=== PATIENT | male | born 1975 | race Caucasian/White ===

== ENCOUNTER → 2024-06-22 | Outpatient (CLI) | payer OTHER ==
--- NOTE | 2024-06-25 15:04 | PE ---
EXAMINATION TYPE: PET CT fusion skull to thigh DATE OF EXAM: 06/22/2024 COMPARISON: Chest CT 05/11/2024, CT abdomen 03/31/2024 Prior PET/CT: No prior PET/CT of dislocation CLINICAL INDICATION: Male, 49 years old with history of R91.8 OTHER NONSPECIFIC ABNORMAL, solitary pu lmonary nodule TECHNIQUE: Following the intravenous administration of 10.1 mCi of F-18 FDG, whole body images are p erformed from the skull base to the midthigh. Images are reviewed on the computer in the coronal, ax ial, and sagittal planes. Reconstructed rotating images are created on independent workstation and r eviewed on the computer. A localization and attenuation correction CT is performed in conjunction w ith the PET scan. DLP: 1304.20 mGycm SCAN: Initial Blood glucose: 92 mg/dL Average Mediastinum SUV: 2.43 Average Liver SUV: 2.83 FINDINGS: NECK: There is some focal uptake within the posterior nasal passage may be uptake within a small. Im age 13, SUV 6.04. There is uptake within the soft tissues of the hypopharynx, example image 27, SUV 5 .72 on the right and SUV 4.42 on the left. There is some intense uptake posterior to the apex of the jaw. Direct visualization recommended. Imag e 26, SUV 6.4 THORAX: No abnormal uptake. No suspicious uptake is within the soft tissue nodule right lateral lung base, image 101, SUV 0.96. N o suspicious uptake within smaller nearby nodules posterior lateral right lung. ABDOMEN: No abnormal uptake PELVIS: No abnormal uptake OSSEOUS STRUCTURES: No abnormal uptake LOCALIZATION CT: Lung nodules are identified on CT. No additional suspicious findings. COMPARISON: No significant changes IMPRESSION: 1. No suspicious uptake within the right lung nodules to suggest primary or metastatic neoplasm. 2. There is some focal uptake posterior to the apex of the mandible with some symmetrical uptake in t he regions of the tonsils and posterior nasal passage at Waldeyer's ring. Examination of the orophary nx recommended. [facility], , 06/25/2024 3:01 PM
== END | disposition home or self-care (01) ==
LOC: RADPETMAIN 15:43
PROVIDERS: ATTEND Internal Medicine Critical Care Medicine
DX: R91.8 Other nonspecific abnormal finding of lung field (principal)
CPT/HCPCS: 78815; A9552